=== PATIENT | female | born 1990 | race Caucasian/White ===

== ENCOUNTER 2018-09-17 08:25 | Day surgery (SDC) | payer OTHER ==
[~2018-09-17 08:25] MED LIST: CEFAZOLIN 2 GM/50 ML (PMX) 50 ML IVPB; SEVOFLURANE 15 MIN; SOD CHLORIDE 0.9% 1,000 ML IV
[2018-09-17] MEDS ORDERED: MIDAZOLAM 1 MG/ML 2 ML INJ (11:13)
[2018-09-17] MEDS: BUPIVACAINE 0.5%/EPI (SDV) 30 ML INJ (11:44)
[2018-09-17] MEDS ORDERED: ONDANSETRON 4 MG INJ (12:27)
[2018-09-17] MEDS ORDERED: HYDROCODONE/APAP (5/325) TAB PO ×2 (12:30)
[2018-09-17] MEDS ORDERED: KETOROLAC 30 MG INJ IV (12:30)
[2018-09-17] MEDS ORDERED: morphine 2 MG INJ IV (12:30)
[2018-09-17] MEDS ORDERED: ONDANSETRON 4 MG INJ IV (12:30)
[2018-09-17] MEDS ORDERED: IBUPROFEN 600 MG TAB PO (12:30)
[2018-09-17] MEDS ORDERED: ROCURONIUM 50 MG INJ (12:34)
[2018-09-17] MEDS ORDERED: LIDOCAINE 2% (SDV) 5 ML INJ (12:34)
[2018-09-17] MEDS ORDERED: GLYCOPYRROLATE 0.4 MG INJ (12:34)
[2018-09-17] MEDS ORDERED: NEOSTIGMINE 3 MG/3 ML SYRINGE (12:34)
[2018-09-17] MEDS ORDERED: PROPOFOL 20 ML (12:34)
[2018-09-17] MEDS ORDERED: CEFAZOLIN 1 GM INJ (12:34)
[2018-09-17] MEDS: KETOROLAC 30 MG INJ IV (12:48)
[2018-09-17] MEDS: HYDROmorphONE 1 MG/5 ML IV SYRINGE IV ×3 (12:53→13:32)
[2018-09-17] MEDS: ONDANSETRON 4 MG INJ IV (12:53)
[2018-09-17] MEDS ORDERED: METOCLOPRAMIDE 10 MG INJ IV (13:00)
[2018-09-17] MEDS ORDERED: MEPERIDINE 25 MG INJ IV (13:00)
[2018-09-17] MEDS ORDERED: DIPHENHYDRAMINE 50 MG INJ IV (13:00)
[2018-09-17] MEDS ORDERED: FENTAnyl 50 MCG/ML VIAL IV (13:00)
== END 2018-09-17 16:20 | disposition home or self-care (01) ==
LOC: SDS 08:25
DX: K80.10 Calculus of gallbladder with chronic cholecystitis without obstruction (principal)
CPT/HCPCS: 47562; 84703; 88304